=== PATIENT | female | born 1990 | race Caucasian/White ===

== ENCOUNTER 2018-02-15 13:56 | Outpatient (CLI) ==
[2018-02-15 14:18] VITALS: BMI 29.6
== END 2018-02-15 13:57 | disposition critical access hospital (66) ==
LOC: AMBL 13:56
PROVIDERS: ATTEND Emergency Medicine
DX: R10.30 Lower abdominal pain, unspecified (principal); V89.2XXA Person injured in unspecified motor-vehicle accident, traffic, initial encounter

== ENCOUNTER 2018-02-15 14:11 | Emergency (ER) ==
[2018-02-15 14:18] VITALS: BP 153/80; BMI 29.6
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
--- NOTE | 2018-02-15 16:47 | DI ---
EXAM: Two views of the left lower leg HISTORY: Injury. COMPARISON: None FINDINGS: There is no cortical irregularity or displaced fracture. There is no dislocation. There i s no lytic or blastic lesion. The soft tissues are normal. IMPRESSION: No acute abnormality or displaced fracture of the left lower leg.
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
--- NOTE | 2018-02-15 17:23 | CT ---
EXAM: Noncontrast CT of the abdomen and pelvis. HISTORY: Injuries. COMPARISON: None. TECHNIQUE: Contiguous axial images at 3 mm intervals were obtained from lung bases through the pelvi s. No contrast was given. Coronal reformats were reviewed. FINDINGS: Evaluation for soft tissue injury is limited without contrast. CHEST: The lung bases show no lobar consolidation or effusion. The heart size is within normal limi ts. ABDOMEN: Evaluation of the soft tissue organs is limited without contrast. LIVER: Noncontrast images of the liver show no solid mass lesion or intrahepatic ductal dilatation. BILIARY: The gallbladder is not well distended. No gallstones are noted. No pericholecystic fluid or inflammation. The common bile duct is normal. SPLEEN: The spleen is unremarkable. PANCREAS: The pancreas shows no mass lesion or peripancreatic inflammation. ADRENAL GLANDS: The adrenal glands are normal. RENAL: The kidneys show no hydronephrosis or nephrolithiasis. There are no obstructing ureteral sto dorys. No solid mass lesions are identified. RETROPERITONEUM: The aorta is unopacified. No aneurysm is identified. No significant aortic calcif ications are seen. There is no retroperitoneal or mesenteric adenopathy. BOWEL: The bowel is unopacified. There is no obstruction or inflammatory change. There is no free fluid or free air. No significant inflammatory changes are seen. The appendix is identified and is normal. PELVIS: BLADDER: The bladder is well distended and appears normal. GENITOURINARY STRUCTURES: The uterus and ovaries are unremarkable. OSSEOUS STRUCTURES: The osseous structures are normal for age. There is a transitional segment at L 5. IMPRESSION 1. No acute intra-abdominal abnormality. Limited study without contrast. No obstructing ureteral s tones. 2. No definite evidence of acute trauma in the abdomen or pelvis. Evaluation for soft tissue injury is limited without contrast. 3. No displaced fractures are identified.
--- NOTE | 2018-02-15 17:25 | CT ---
EXAM: CT THORAX HISTORY: Injuries. TECHNIQUE: CT thorax without intravenous contrast. Multiplanar images presented. COMPARISON: None FINDINGS: Diagnostic limitations exist without including contrast enhanced images. Normal heart size. No shiela cardial effusion. The thoracic aorta is grossly unremarkable. Lungs reveal no consolidation. There is no pleural fluid or pneumothorax. The bones reveal no acute deformity or fracture. IMPRESSION: No injuries of the chest identified.
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
[2018-02-15 17:27] VITALS: TEMP 101.5
== END 2018-02-15 18:10 | disposition home or self-care (01) ==
LOC: ED 14:11
DX: S29.9XXA Unspecified injury of thorax, initial encounter (principal); S39.91XA Unspecified injury of abdomen, initial encounter; N39.0 Urinary tract infection, site not specified; M25.532 Pain in left wrist; M79.642 Pain in left hand; M79.605 Pain in left leg; M54.2 Cervicalgia; M54.9 Dorsalgia, unspecified; V89.2XXA Person injured in unspecified motor-vehicle accident, traffic, initial encounter
CPT/HCPCS: 36415; 80053; 81001; 84703; 85025; 99285